=== PATIENT | female | born 1990 | race Caucasian/White ===

== ENCOUNTER 2019-04-10 06:32 | Inpatient (IN) | payer BC ==
[~2019-04-10] VITALS: Ht 162.6 cm; Wt 100.9 kg
[2019-04-20] VITALS (16 sets, daily range): BP systolic 127–147; BP diastolic 67–93; PULSE 80–103; TEMP 97.7–98
--- NOTE | 2019-04-20 19:05 | NUR ---
G1 at 39 weeks and 0 days arrives to unit ambulatory for scheduled induction of labor. Pt into new gown, oriented to room, call light within reach, bed in low and locked position. US and toco explained and applied. Pt reports feeling good movement, denies LOF, denies contractions, and denies any vaginal bleeding. Pt denies headaches, blurry vision, or RUQ pain. Plan of care reviewed with patient and spouse. SVE /-3
--- NOTE | 2019-04-20 19:45 | NUR ---
18 G IV started in left wrist with 1 attempt. Admission labs obtained off IV start. Lactated Ringers infusing to gravity. Consents reviewed and signed with patient and spouse.
--- NOTE | 2019-04-20 19:55 | NUR ---
Category 1 FHR tracing. 25 mcg of cytotec given PO at this time. Plan of care reviewed. Spouse supportive at bedside.
[2019-04-20 21:13] LABS: BASO % 0.1 % (0.0-2.0); EOS % 0.4 % (0-4.0); GRAN # 7.9 (1.4-6.5); GRAN % 69.9 % (42.2-75.2); HEMOGLOBIN 11.2 g/dl (12.5-16.0); LYMPH # 2.3 (1.2-3.4); MEAN CELL VOLUME 93 fl (80.0-100.0); MEAN CORPUSCULAR HEMOGLOBIN 31 pg (27.0-31.0); MEAN CORPUSCULAR HGB CONC 34 g/dl (33.0-37.0); MEAN PLATELET VOLUME 11.4 fl (7.4-10.4); MONO % 8.8 % (1.7-9.3); PLATELET COUNT 231 K/mm3 (130-400); RED BLOOD COUNT 3.58 M/mm3 (4.10-5.30); REDCELL DISTRIBUTION WIDTH-CV 14.1 % (11.5-14.5)
[2019-04-20 21:25] LABS: HEMATOCRIT 33.2 % (37.0-47.0)
[2019-04-20] MEDS ORDERED: PRENATAL MVI (22:29)
[2019-04-21] VITALS (94 sets, daily range): BP systolic 108–154; BP diastolic 57–100; PULSE 75–110; TEMP 97.6–97.9
--- NOTE | 2019-04-21 09:20 | NUR ---
0920- Dr. Ferguson at bedside. Reviews FHR Strip and contraction pattern, reviews blood pressures. No new orders recieved. Discussing plan of care for SVE and possible AROM, patient agrees. 0924- SVE per provider /. AROM by Dr. Ferguson for large amount of light meconium fluid. Pericare given and underpads changed. Discussed plan of care to hold Pitocin at 20mU at this time and recheck cervix in two hours. Patient denies questions or need.
--- NOTE | 2019-04-21 11:30 | NUR ---
SVE unchanged. Pericare given and patient assisted to bathroom than to birthing ball. See physician notification.
--- NOTE | 2019-04-21 12:50 | NUR ---
Dr. Ferguson at bedside. Reviews FHR strip, contraction pattern, and vitals. SVE per provider /-3. Orders to increase Pitocin to 30 mU and then recheck cervix one hour after being at 30 mU and update provider. Patient denies need at this time. Pericare given and back up to birthing ball.
--- NOTE | 2019-04-21 23:30 | NUR ---
1814- Report from PUMA Sidhu. Pitocin infusing per protocol at 30mU. to assess patient within the hour. 0- SVE 4/70/-2. See Physician Notification. Pitocin infusing at 10mU. 2099- SVE 4/70/-2. See Physician Notification. Salas called for epidural. 2129- Patient up to restroom to void. Patient returned to sitting on the edge of bed for epidural placement. EFM and TOCO on and tracing intermittently due to maternal positioning. 2134- LORAINE Marina at bedside for epidural placement. 2141- Single Shot. 2229- SVE 4/70/-2. Brown catheter placed by PUMA Zimmer. 0- Patient WL and asleep.
[2019-04-22] VITALS (59 sets, daily range): BP systolic 89–150; BP diastolic 53–98; PULSE 83–162; TEMP 97.6–98.8
--- NOTE | 2019-04-22 03:00 | NUR ---
0000- Patient asleep. 0045- SVE /-2. See Physician Notification. Pitocin off. 0200- RN to bedside. BP low. Patient has complaints of N/V. Saltine crackers given. Patient back to sleep. 0215- Patient repositioned RL. FHT tachycardia noted and monitored. planting material remover notified. 0300- Pitocin infusing at 2mU per protocol.
--- NOTE | 2019-04-22 07:30 | NUR ---
sve: 4-/-2. Pt repositioned to sitting up straight in bed. Sponge bath done per pt. 0805:Dr Ferguson here and at bedside, reviews FHR monitor strip. SVE: /-2. IUPC placed at this time per physician. 0820:Pericare done and pt to left lateral position with peanut ball in place. 0845:Pen G 5mu started IVPB per order for PROM.
--- NOTE | 2019-04-22 09:00 | NUR ---
SVE: 7/90/-2. 1030:Pt feeling pressure, SVE: anterior lip/100/0. Pericare done and pt repositioned to a sitting up position. 1110:SVE: Complete +1. 1115:Pt instructed on how to push and starts pushing with contractions. Good progress made. 1155:Brown catheter removed. FHR baseline increased to 150-155bpm. Moderate variability and accels noted. 1215:Dr Ferguson called and notified she is needed for delivery. FHR baseline increased now to 160-165bpm. 1235:Dr Ferguson here and at bedside. Pt prepped for delivery. FHR baseline now 175bpm. Physician monitoring FHR. Maternal pulse 140-160bpm.
--- NOTE | 2019-04-22 12:35 | NUR ---
Pt continues to push with physician. 1255: of head and shoulders. Cord clamped and in care of Harlan. 1258:Spontaneous delivery of placenta. LR with pitocin infusing per protocol at 333ml/hr. 2nd degree laceration repaired by physician. Fundus massaged, boggy at first. 800mcg of cytotec given RC per physician at 1301. 1305:Fundus firm, bleeding now small to moderate. Straight catheter done per physician. 1310:Pericare done and new pads and ice pack in place. Pt sitting up holding infant skin to skin. Will continue to monitor vital signs.
--- NOTE | 2019-04-22 15:50 | NUR ---
Pt able to ambulate to bathroom with assist. Voids 800cc urine. Pericare instructions given. New pad and ice pack in place. Pt ambulates to room 207 without difficulty.
[2019-04-23 00:09] VITALS: BP 131/82; PULSE 93; TEMP 98.3
[2019-04-23 03:55] VITALS: BP 130/80; PULSE 88; TEMP 97.7
[2019-04-23 08:50] VITALS: BP 126/77; PULSE 104; TEMP 97.9
--- NOTE | 2019-04-23 10:06 | NUR ---
Initial visit attempt, family indisposed, Liquid Hydrogen Plant Operator left card of congratulations for the of their son and information regarding the availability of spiritual care at [facility].
[2019-04-23 12:46] VITALS: BP 121/73; PULSE 85; TEMP 98.6
[2019-04-23 15:05] VITALS: BP 129/83; PULSE 93; TEMP 98.3
[2019-04-23 21:30] VITALS: BP 130/78; PULSE 93; TEMP 98.2
[2019-04-24 08:31] VITALS: BP 136/79; PULSE 98; TEMP 97.6
[2019-04-24] MEDS ORDERED: IBU600 MG PO (09:06)
== END 2019-04-24 10:35 | disposition home or self-care (01) | DRG 807 ==
LOC: OB 04-20 09:08 → LDR 04-20 11:21 → OB 04-22 13:54 → LDR 04-27 06:31 → EDSTATUS 04-27 06:32
PROVIDERS: ADMIT Obstetrics & Gynecology
PROC: 10E0XZZ Delivery of Products of Conception, External Approach (ICD-10-PCS; principal; 2019-04-22)
PROC: 0KQM0ZZ Repair Perineum Muscle, Open Approach (ICD-10-PCS; 2019-04-22)
PROC: 10907ZC Drainage of Amniotic Fluid, Therapeutic from Products of Conception, Via Natural or Artificial Opening (ICD-10-PCS; 2019-04-22)
DX: O36.63X0 Maternal care for excessive fetal growth, third trimester, not applicable or unspecified (principal); Z37.0 Single live birth; O13.4 Gestational [pregnancy-induced] hypertension without significant proteinuria, complicating childbirth; O77.0 Labor and delivery complicated by meconium in amniotic fluid; O36.8330 Maternal care for abnormalities of the fetal heart rate or rhythm, third trimester, not applicable or unspecified; O62.2 Other uterine inertia; O70.1 Second degree perineal laceration during delivery; Z3A.39 39 weeks gestation of pregnancy
CPT/HCPCS: J2540; J2590; J2795; J7120

== ENCOUNTER → 2019-04-28 | Outpatient (CLI) | payer BC ==
[~2019-04-28] MED LIST: IBU600 MG PO; PRENATAL MVI
--- NOTE | 2019-04-28 12:04 | NUR ---
Pt, Moira Wu, into walk in clinic with 6 day old Mau for evaluation. Moira expressed concern that her milk "has not come in" and Mau comes off the breast often while feeding Mau's weight ib 04/22/19 was 8# 0 oz. Moira states she has been feeding Mau q 2 hours to try and stimulate supply, however Mau does not nurse well with each feeding. Moira reports Mau has had 2 transitional stools in the last 24 hours and 5 wet diapers. Over the weekend Moira states Mau went 16 horus with out a wet diaper so she started supplementing approx 3 oz of formula per day. Today's prefeed weight was 7#11.7 oz (3508 gm). Moira put Mau to breast, but he was fussy and not staying latch. LC discussed using SNS to supplemetn Mau while at the breast to see if this would help him stay latched longer. Mau nursed bilaterally for 10-15 min per breast and took a total of 24 ml Similac via SNS and took 26 ml total from the breast. LC suggested the 3 Step feeding plan of , supplementing, and pumping with each feed to help increase Mau's intake and increase Moira's milk supply. Verbal and written instructions provided. Moira asked about supplements that may help increase supply. Options discussed. POC: Moira will start 3 step feeding plan, supplementing 1.5 ml formula or EMB via SNS with each feed. Return to clinic next week for follow up. Questions invited and answered. Understanding verbalized.
== END ==
LOC: LAC 10:23
DX: Z39.1 Encounter for care and examination of lactating mother (principal); Z71.89 Other specified counseling

== ENCOUNTER → 2019-05-05 | Outpatient (CLI) | payer BC ==
--- NOTE | 2019-05-05 12:28 | NUR ---
Pt, Moira Wu into clinic with 2 week old Mau ( [birth year]/19) for weight check and to evaluate milk transfer. Moira and Mau were in the previous week and it was determined that Moira's milk supply was low so the three step feeding method was started. Moira states Mau has been nursing 8 times a day, taking 40-50 mls EBM or formula via SNS with each feeding. Moira is also pumping after each feeding and taking Mother's Love supplement to help increase milk supply. Diapers are within normal limits. Last week, Mau's prefeed weight was noted as 7 #11.7 oz (3508 gms). Mau's prefeed weight today was noted as 8#12.6 oz (3986 gms), a gain of 17 oz in the last week. While in clinic he nursed bilaterally without the use of SNS with a total intake of 54 ml. POC: Continue to feed ad diana, at least 8 times per day. Decrease supplement to 30 mls per feeding. Continue to pump to work on increasing supply. Return next week for weight check. Questions invited and answered. Understanding verbalized.
== END ==
LOC: OLC 10:41
DX: Z39.1 Encounter for care and examination of lactating mother (principal); Z71.89 Other specified counseling

== ENCOUNTER → 2019-05-12 | Outpatient (CLI) | payer BC ==
--- NOTE | 2019-05-12 11:13 | NUR ---
Pt, Moira Wu, presents to walk-in clinic with 3 week old baby boy, Mau Wu for a evaluation. They have been attending clinic regularly. Mau was born on [birth year] and weighed 8#0oz. Last week he weighed 8#12.6oz for a gain of 17oz in one week. Today Mau weighs 9#9.3 (4346 gms) for a gain of 12.7oz in on week. Pt states Mau is being woke for feedings every 3 hours. He has decreased the amount of EBM he takes via SNS to an average of 20ml per feeding. Pt continues to pump q feeding, collecting about 30ml average. After bilaterally Mau has a weight gain of 2.5oz (72 gms). POC: Continue 8 or more feedings per 24 hours. Discontinue supplement and pumping unless baby not content. F/U: Walk-in clinic for feed evals or weight checks as desired. Questions invited and answered.
== END ==
LOC: LAC 10:46
DX: Z39.1 Encounter for care and examination of lactating mother (principal)

== ENCOUNTER → 2022-07-10 | Outpatient (CLI) | payer BC ==
--- NOTE | 2022-07-10 15:13 | NUR ---
Pt, Moira Wu, presents to walk-in clinic, with 1 month old baby girl, Karli Wu, for a evaluation. Pt states baby has had a cold and feedings have been a little off recently. Karli was born on [birth year] and weighed 7# 3oz (3260 gms). Two weeks ago she weighed 7# 15.1oz (3603 gms). Today she weighs 8# 15.8 oz. During it is noted that Karli has a hard time staying latched as the milk is flowing easily from the breast. After nursing one breast Karli has a gain of 3oz (86 gms). Discussed with pt using laid back nursing and side-lying to help manage milk flow. POC: Continue BF ad diana, using positions that may help Karli manage flow. F/U: As desired with BF clinic and as scheduled with doctors.
== END ==
LOC: LAC 13:46
DX: Z39.1 Encounter for care and examination of lactating mother (principal)

== ENCOUNTER 2024-01-03 11:34 | Inpatient (IN) | payer BC ==
[~2024-01-03] VITALS: Ht 165.1 cm; Wt 96.4 kg
[2024-01-10] VITALS (55 sets, daily range): BP systolic 105–147; BP diastolic 55–92; PULSE 61–93; TEMP 97.6–98.5
[2024-01-10] MEDS ORDERED: LR 1,000 ML IV SCH (06:15)
[2024-01-10] MEDS ORDERED: LR & Oxytocin 500 ML IV SCH ×2 (06:15)
--- NOTE | 2024-01-10 06:35 | NUR ---
PATIENT AMBULATORY TO UNIT WITH SPOUSE, ENEDINA FOR SCHEDULED INDUCTION. PATIENT ORIENTED TO LABOR ROOM 4 AND PUT ON HER OWN GOWN. PATIENT ASSISTED INTO BED. PATIENT DENIES CONTRACTIONS, LEAKING OF LFUID OR VAGINAL BLEEDING AND REPORTS GOOD MOVEMENT. EFM AND TOCO PLACED AND TRACING WELL. ASSESSMENTS COMPLETE, CONSNETS SIGNED.
[2024-01-10 08:11] LABS: BASO % 0.2 % (0.0-2.0); EOS # 0.1 K/mm3 (0.0-0.7); EOS % 0.5 % (0.0-4.0); GRAN # 7.9 K/mm3 (1.4-6.5); GRAN % 74.2 % (42.2-75.2); HEMOGLOBIN 12.3 g/dl (12.5-16.0); LYMPH # 1.9 K/mm3 (1.2-3.4); LYMPH % 18.4 % (20.0-51.0); MEAN CELL VOLUME 94 fl (80.0-100.0); MEAN CORPUSCULAR HEMOGLOBIN 32 pg (27-31); MEAN CORPUSCULAR HGB CONC 33 g/dl (33.0-37.0); MEAN PLATELET VOLUME 11.6 fl (7.4-10.4); MONO # 0.6 K/mm3 (0.1-0.6); MONO % 5.9 % (1.7-9.3); PLATELET COUNT 200 K/mm3 (130-400); RED BLOOD COUNT 3.91 M/mm3 (4.10-5.30); REDCELL DISTRIBUTION WIDTH-CV 13.7 % (11.5-14.5)
[2024-01-10 08:12] LABS: HEMATOCRIT 36.9 % (37.0-47.0)
--- NOTE | 2024-01-10 08:20 | NUR ---
TO BEDSIDE TO CONFIRM PRESENTATION. BEDSIDE SONO AT THIS TIME, PATIENT UPDATED ON PLAN OF CARE.
[2024-01-10 08:36] LABS: ALBUMIN 2.6 g/dL (3.5-5.0); BILIRUBIN,TOTAL 0.2 mg/dL (0.2-1.2); CREATININE, serum 0.65 mg/dL (0.57-1.11); POTASSIUM 3.5 mEq/L (3.5-4.5); TOTAL PROTEIN 5.7 g/dl (6.2-8.1)
[2024-01-10] MEDS ORDERED: ROPivacaine PF 0.2% 200 ML IV ONE (09:51)
--- NOTE | 2024-01-10 11:22 | NUR ---
TO PATIENTS ROOM TO ASSESS PROGRESS. SVE /-3, AROM AT THIS TIME, CLEAR FLUID NOTED. PATIENT REQUESTS EPIDURAL, LR BOLUS STARTED, KWAKU NOTIFIED AT NURSES STATION
[2024-01-10] MEDS ORDERED: Ondansetron 4 MG/2 ML VIAL IV PRN (12:00)
[2024-01-10] MEDS ORDERED: diphenhydrAMINE 50 MG/ML 1 ML VIAL IV PRN (12:00)
[2024-01-10] MEDS ORDERED: Naloxone 0.4 MG/ML VIAL IV PRN ×2 (12:00→20:45)
[2024-01-10] MEDS ORDERED: ePHEDrine 50 MG/10 ML VIAL IV PRN (12:00)
[2024-01-10] MEDS ORDERED: diphenhydrAMINE 25 MG CAP PO PRN (12:00)
--- NOTE | 2024-01-10 12:35 | NUR ---
1205- LORAINE AMES IN PATIENTS ROOM FOR EPIDURAL PLACEMENT. KWAKU DISCUSSES PLACEMENT WITH PATIENT. 1208- DIFFICULTY TRACING FHR DUE TO PATIENT POSITIONING FOR EPIDURAL PLACEMENT. THIS RN ADJUSTS EFM. 1220- CONTINUED DIFFICULTY TRACING FHR, EFM ADJUSTED. 1225- TEST DOSE ADMINISTERED BY LORAINE AMES. EFM ADJUSTED FOR BETTER FHR TRACING. 1235- PATIENT REPOSITONED TO WEDGED RIGHT, EFM ADJUSTED. THIS RN REMAINS AT BEDSIDE TO MONITOR VITAL SIGNS.
--- NOTE | 2024-01-10 16:33 | NUR ---
HEART RATE DECELS WITH EACH CONTRACTION. PRIMARILY EARLY DECELS, WITH X1 LATE, X1 VARIABLE TO THE 90'S.
--- NOTE | 2024-01-10 18:15 | NUR ---
1800: PT COMPLETE/+2, AT NURSES STATION NOTIFIED TO COME IN FOR DELIVERY. 180: DISCUSSION REGARDING VACUUM ASSITANCE; PT VERBALIZED UNDERSTANDING AND AGREES TO PROCEED. 180: AT 180, VACUUM PLACED ON INFANT HEAD, PRESSURIZED TO GREEN AND TRACTION WITH MATERNAL PUSHING. X1 PULL AND AT 180, VACUUM ASSISTED VAGINAL DELIVERY OF VIABLE MALE . STIMULATED AND CRYING, PLACED ON MATERNAL ABDOMEN. PER REQUEST, WAITED UNTIL CORD STOPPED PULSATING THEN CLAMPED X2 PER AND FOB CUT CORD. MOVED TO MATERNAL CHEST AND PUMA BALBUENA NURSERY NURSE ASSUMES CARE OF INFANT. CORD GASSES AND CORD BLOOD OBTAINED PER AND PASSED OFF TO PUMA KRISHNA AND SENT TO RT AND LAB. 1812: OF INTACT PLACENTA. PITOCIN STARTED AT 333ML/HR PER HOSPITAL POLICY. EPIDURAL TURNED OFF AT THIS TIME. PERINEUM ASSESSED INTACT PER . FUNDAL MASSAGE PERFORMED, FUNDUS FIRM, LOCHIA WNL. PT REPOSITIONED TO SEMIFOWLER POSITION WITH AN ICEPACK TO THE PERINEUM. RECOVERY STARTED AT 1814, CALL LIGHT AND WATER WITHIN REACH.
--- NOTE | 2024-01-10 18:20 | NUR ---
REPORT GIVEN TO PUMA PATINO WHO ASSUMES CARE OF PATIENT AT THIS TIME.
[2024-01-10] MEDS ORDERED: Sennosides/Docusate 8.6-50 MG TAB PO SCH (20:36)
[2024-01-10] MEDS ORDERED: Loratadine 10 MG TAB PO PRN (20:45)
[2024-01-10] MEDS ORDERED: Measles/Mumps/Rubella Virus Vaccine Live w Diluent 0.5 ML VIAL SQ SCH (20:45)
[2024-01-10] MEDS ORDERED: Phenylephrine/Mineral Oil/Petrolatum 57 GM TUBE RC PRN (20:45)
[2024-01-10] MEDS ORDERED: Acetaminophen 500 MG TAB PO SCH (20:45)
[2024-01-10] MEDS ORDERED: Magnes Hydrox (MOM) 80 MG/ML 30 ML CUP PO PRN (20:45)
[2024-01-10] MEDS ORDERED: Witch Hazel 50% Pads Bulk TUB TP PRN (20:45)
[2024-01-10] MEDS ORDERED: Mag/Al Hydrox/Simeth Susp 30 ML CUP PO PRN (20:45)
[2024-01-10] MEDS ORDERED: Ibuprofen 600 MG TAB PO SCH (20:45)
[2024-01-10] MEDS ORDERED: traZODone 50 MG TAB PO PRN (21:00)
[2024-01-11 04:00] VITALS: BP 122/68; PULSE 77; TEMP 98.4
[2024-01-11] MEDS ORDERED: MOTRIN 600600 MG/TAB PO (07:42)
[2024-01-11] MEDS ORDERED: Prenatal Vitamins/Iron/FA TAB PO SCH (09:00)
--- NOTE | 2024-01-11 19:45 | NUR ---
Discharge instructions given to pt who verbalizes her understanding. Denies questions. Pt ambulatory off unit with and .
== END 2024-01-11 19:45 | disposition home or self-care (01) | DRG 807 ==
LOC: LDR 01-10 06:22 → OB 01-10 06:24
PROVIDERS: ADMIT Obstetrics & Gynecology
PROC: 10E0XZZ Delivery of Products of Conception, External Approach (ICD-10-PCS; principal; 2024-01-10)
DX: O13.4 Gestational [pregnancy-induced] hypertension without significant proteinuria, complicating childbirth (principal); Z37.0 Single live birth; Z3A.39 39 weeks gestation of pregnancy
CPT/HCPCS: J2590; J2795; J7120